=== PATIENT | female | born 1995 | race Caucasian/White ===

== ENCOUNTER 2019-11-07 08:39 | Emergency (ER) | payer OTHER ==
[2019-11-07 10:44] LABS: ABSOLUTE LYMPHOCYTES (AUTO) 1.7 10^3/uL (0.5-4.7); ABSOLUTE MONOCYTES (AUTO) 0.3 10^3/uL (0.1-1.4); ABSOLUTE NEUT (AUTO) 3.4 10^3/uL (1.7-8.2); BASOPHILS % (AUTO) 0.7 % (0-2); EOSINOPHILS % (AUTO) 0.9 % (0-6); HEMATOCRIT 35.2 % (36.0-47.0); HEMOGLOBIN 12.3 g/dL (12.0-15.5); MEAN CORPUSCULAR HGB CONC 34.9 g/dL (32.0-36.0); MEAN CORPUSCULAR VOLUME 80 fl (80-97); PLATELET COUNT 265 10^3/uL (150-450); RED BLOOD COUNT 4.39 10^6/uL (3.72-5.28); RED CELL DISTRIBUTION WIDTH 13.5 % (11.5-14.0); SEGMENTED NEUTROPHILS % (AUTO) 62.4 % (42-78); TOTAL CELLS COUNTED % (AUTO) 100 %; WHITE BLOOD COUNT 5.4 10^3/uL (4.0-10.5)
[2019-11-07 11:03] LABS: ALBUMIN 4.1 g/dL (3.5-5.0); ALKALINE PHOSPHATASE 32 U/L (38-126); ANION GAP 6 (5-19); ASPARTATE AMINO TRANSFERASE 17 U/L (14-36); BILIRUBIN,TOTAL 0.4 mg/dL (0.2-1.3); BLOOD UREA NITROGEN 3 mg/dL (7-20); CALCIUM 9.4 mg/dL (8.4-10.2); CARBON DIOXIDE 23 mmol/L (22-30); CHLORIDE 107 mmol/L (98-107); GLUCOSE 89 mg/dL (75-110); POTASSIUM 3.5 mmol/L (3.6-5.0); TOTAL PROTEIN 6.7 g/dL (6.3-8.2)
--- NOTE | 2019-11-07 13:45 | RADIOLOGY REPORT (SQ) ---
EXAM DESCRIPTION: U/S OB TRANSVAGINAL W/O DOP IMAGES COMPLETED DATE/TIME: 11/07/2019 1:02 pm REASON FOR STUDY: preg bleeding COMPARISON: None. TECHNIQUE: Transvaginal static and realtime grayscale images acquired of the pelvis. Additional britton cted spectral and color Doppler images recorded. All images stored on PACs. bHCG: Not available. CLINICAL DATES: 7 weeks 4 days. LIMITATIONS: None. FINDINGS: FETUS: Single Living intrauterine . ULTRASOUND EGA: 7 weeks 4 days. ULTRASOUND LISA: 06/21/2020. EFW: Not applicable less than 20 weeks. CRL: 1.29 cm. FHR: 130 beats per minute. SURVEY: Too early to assess. AMNIOTIC FLUID: Too early to assess. PLACENTA: Too early to assess. SUBCHORIONIC BLEED: Yes. SIZE OF BLEED: 1.9 x 1.4 x 1.1 cm. The collection is heterogeneous in echotexture. It extends into the left aspect of the endometrial canal. UTERUS: Probable arcuate uterus. CERVICAL LENGTH: 2.9 cm. Closed. RIGHT ADNEXA: Normal ovary with normal vascular flow. No adnexal free fluid. No adnexal masses. LEFT ADNEXA: Left ovary is not visualized due to overlying bowel gas. No adnexal free fluid. No adnexal masses. FREE FLUID: None. OTHER: No other significant finding. IMPRESSION: LIVING INTRAUTERINE . EGA 7 WEEKS 4 DAYS. PROBABLE ARCUATE UTERUS. HETEROGENEOUS SUBCHRONIC BLEED. FOLLOW-UP IMAGING IS RECOMMENDED TO ENSURE RESOLUTION. Trimester of : First trimester - 0 to 13 weeks. TECHNICAL DOCUMENTATION: JOB ID: [id number] [employer]- All Rights Reserved rev-09/11 Reading location - IP/workstation name: [email or web address]
[2019-11-07 13:59] LABS: APPEARANCE,URINE SLIGHTLY-CLOUDY; BILIRUBIN,URINE NEGATIVE (NEGATIVE); COLOR,URINE YELLOW; GLUCOSE, URINE NEGATIVE (NEGATIVE); KETONES,URINE NEGATIVE (NEGATIVE); LEUKOCYTE ESTERASE,URINE MODERATE (NEGATIVE); NITRITE,URINE NEGATIVE (NEGATIVE); PROTEIN,URINE NEGATIVE (NEGATIVE); URINE SPECIFIC GRAVITY 1.014; UROBILINOGEN,URINE NEGATIVE mg/dL (<2.0)
--- NOTE | 2019-11-07 14:07 | ER Document Report ---
ED General - General Chief Complaint: Vag Bleeding, +preg <12wks Stated Complaint: VAGINAL BLEEDING Time Seen by Provider: 11/07/19 08:59 Primary Care Provider: RACHELL WATSON MD [Primary Care Provider] - Follow up as needed Mode of Arrival: Ambulatory Information source: Patient - [facility] Notes: Patient presents with vaginal bleeding. She states that she is approximately 7 weeks by a recent ultrasound. She states she started bleeding yeste rday and today is having bright red bleeding. No significant tissue or clots. She denies any pain. No lightheadedness or dizziness. She states she had 1 previous that was electively terminated. Patient denies any other significant symptoms. The bleeding has been intermittent. Nothing makes it better or worse. It obviously does not radiate. It has been intermittent. - Related Data Allergies/Adverse Reactions: No Known Allergies Allergy (Verified 11/07/19 10:06) Past Medical History - General Information source: Patient - Social History Smoking Status: Never Smoker Frequency of alcohol use: None Drug Abuse: None Family History: Reviewed & Not Pertinent Review of Systems - Review of Systems Constitutional: denies: Chills, Fever Cardiovascular: denies: Chest pain, Palpitations Respiratory: denies: Cough, Short of breath -: Yes All other systems reviewed and negative Physical Exam - Vital signs Vitals: Temp Pulse Resp BP Pulse Ox 97.8 F 72 18 104/65 99 11/07/19 08:43 11/07/19 08:43 11/07/19 08:43 11/07/19 08:43 11/07/19 08:43 Interpretation: Normal - General General appearance: Appears well, Alert - HEENT Head: Normocephalic, Atraumatic Eyes: Normal Pupils: PERRL - Respiratory Respiratory status: No respiratory distress Chest status: Nontender Breath sounds: Normal Chest palpation: Normal - Cardiovascular Rhythm: Regular Heart sounds: Normal auscultation Murmur: No - Abdominal Inspection: Normal Distension: No distension Bowel sounds: Normal Tenderness: Nontender Organomegaly: No organomegaly - Back Back: Normal, Nontender - Extremities General upper extremity: Normal inspection, Nontender, Normal color, Normal ROM, Normal temperature General lower extremity: Normal inspection, Nontender, Normal color, Normal ROM, Normal temperature, Normal weight bearing. No: Pasha's sign - Neurological Neuro grossly intact: Yes Cognition: Normal Orientation: AAOx4 [place] Coma Scale Eye Opening: Spontaneous [place] Coma Scale Verbal: Oriented Paula Coma Scale Motor: Obeys Commands [place] Coma Scale Total: 15 Speech: Normal Motor strength normal: LUE, RUE, LLE, RLE Sensory: Normal - Psychological Associated symptoms: Normal affect, Normal mood - Skin Skin Temperature: Warm Skin Moisture: Dry Skin Color: Normal Course - Re-evaluation Re-evalutation: 11/07/19 14:04 Patient's ultrasound shows an intrauterine . She does have a méndez bchorionic hemorrhage that is most likely accounting for the vaginal bleeding that she is having. At this time development appears in general normal. She is fetus has a good heart rate. I will have the patient follow-up with [facility]. Patient also has an equivocal urine. I will treat the patient with Macrobid. - Vital Signs Vital signs: Temp Pulse Resp BP Pulse Ox 97.8 F 72 18 104/65 99 11/07/19 08:59 11/07/19 08:43 11/07/19 08:43 11/07/19 08:43 11/07/19 08:43 - Laboratory Result Diagrams: 11/07/19 10:13 11/07/19 10:13 Laboratory results interpreted by me: 11/07/19 11/07/19 11/07/19 10:13 10:13 10:13 Hct 35.2 L Sodium 135.7 L Potassium 3.5 L BUN 3 L Creatinine 0.50 L Alkaline Phosphatase 32 L Serum HCG, Qual POSITIVE H Beta HCG, Quant Urine Blood Ur Leukocyte Esterase 11/07/19 11/07/19 10:13 10:13 Hct Sodium Potassium BUN Creatinine Alkaline Phosphatase Serum HCG, Qual Beta HCG, Quant [id number] H Urine Blood LARGE H Ur Leukocyte Esterase MODERATE H - Diagnostic Test Radiology reviewed: Image reviewed, Reports reviewed Discharge - Discharge Clinical Impression: Threatened Subchorionic bleed Qualifiers: Fetus number: single or unspecified fetus Trimester: first trimester Qualified Code(s): O41.8X10 - Other specified disorders of amniotic fluid and membranes, first trimester, not applicable or unspecified; O46.8X1 - Other antepartum hemorrhage, first trimester UTI (urinary tract infection) Qualifiers: Urinary tract infection type: acute cystitis Hematuria presence: without hematuria Qualified Code(s): N30.00 - Acute cystitis without hematuria Condition: Stable Disposition: HOME, SELF-CARE Instructions: Bleeding During Early ([facility]), Nitrofurantoin ([facility]), Ob- [facility], ([facility]), Threatened Miscarriage ([facility]) Additional Instructions: Please call Dr. Watson's office as soon as possible to arrange follow-up Prescriptions: Nitrofurantoin Monohyd/M-Cryst [Macrobid 100 mg Capsule] 100 mg PO BID 7 Days #14 cap Forms: Return to Work Referrals: RACHELL WATSON MD [Primary Care Provider] - Follow up in 3-5 days
[2019-11-07 15:01] VITALS: BP 100/60
== END 2019-11-07 14:59 | disposition home or self-care (01) ==
LOC: ER 08:39
DX: O20.0 Threatened abortion (principal); O23.11 Infections of bladder in pregnancy, first trimester; Z3A.00 Weeks of gestation of pregnancy not specified
CPT/HCPCS: 36415; 76817; 80053; 81001; 84702; 84703; 85025; 86900; 86901; 99284